=== PATIENT | female | born 1975 | race African-American/Black ===

== ENCOUNTER 2017-04-02 12:46 | Emergency (ER) | payer MEDICAID ==
[~2017-04-02] VITALS: Ht 165.1 cm; Wt 99.7 kg
[~2017-04-02 12:46] MED LIST: AMLO10TA4 PO; AMLO2.5T2 PO; AMLO5TAB2 PO; ATEN25TA PO; CHLO25TA PO; FERR325T18 PO; FERR325T5 PO; HYDR12.53 PO; LISI-170 PO; LISI5TAB7 PO; MEDR10TA PO; MEDR5TAB2 PO; iron
[2017-04-02] MEDS ORDERED: ASPIRIN 81 MG TABLET CHEW PO ONE (14:00)
[2017-04-02] MEDS ORDERED: SODIUM CHLORIDE FLUSH 10ML SYR IVF ONE (14:00)
[2017-04-02] MEDS ORDERED: SODIUM CHLORIDE 0.9% 1,000ML IVBOLUS ONE (14:00)
[2017-04-02] MEDS ORDERED: MORPHINE SULFATE 4 MG/ML, 1ML IVPush PRN (14:00)
[2017-04-02] MEDS ORDERED: ONDANSETRON 2MG/ML, 2ML IVPush ONE (14:00)
[2017-04-02 14:44] LABS: BLOOD UREA NITROGEN 11 mg/dL (7-18)
[2017-04-02 14:49] LABS: ASPARTATE AMINO TRANSFERASE 17 U/L (15-37)
[2017-04-02 14:50] LABS: IS PT STATUS REG ER OR PRE ER? YES
[2017-04-02] MEDS ORDERED: ASPIRIN 81 MG TABLET CHEW ONE (14:57)
[2017-04-02] MEDS ORDERED: METO25TA35 PO (15:47)
[2017-04-02] MEDS ORDERED: CLON-275 PO (15:47)
[2017-04-02] MEDS ORDERED: BUPR150T20 PO (15:47)
[2017-04-02] MEDS ORDERED: MAALOX/HYOSCYAMINE/LIDOCAINE 45 ML BTL ONE (15:54)
[2017-04-02] MEDS ORDERED: KETOROLAC 30 MG/1 ML ONE (15:54)
[2017-04-02] MEDS ORDERED: MAALOX/HYOSCYAMINE/LIDOCAINE 45 ML BTL PO ONE (16:00)
[2017-04-02] MEDS ORDERED: KETOROLAC 30 MG/1 ML IM ONE (16:00)
[2017-04-02 16:34] LABS: HEMATOCRIT 42.8 % (34.6-47.8); HEMOGLOBIN 14.4 g/dL (11.7-16.4); WHITE BLOOD COUNT 7.2 x10^3/uL (3.4-10)
[2017-04-02 16:39] VITALS: BP 156/103
[2017-04-02 16:59] LABS: DIFF TOTAL CELLS COUNTED 100 CELL DIFF
[2017-04-02 17:05] LABS: ANISOCYTOSIS 1+; LARGE PLATELETS 1+; OVALOCYTES 1+; POIKILOCYTOSIS 1+
[2017-04-02 17:06] LABS: GIANT PLATELETS 1+
[2017-04-02 17:07] LABS: VERIFY COUNTS? YES
== END 2017-04-02 16:41 | disposition home or self-care (01) ==
LOC: ED 16:35
DX: R07.89 Other chest pain (principal); R00.2 Palpitations; J45.909 Unspecified asthma, uncomplicated; E07.9 Disorder of thyroid, unspecified; Z90.710 Acquired absence of both cervix and uterus
CPT/HCPCS: 36415; 71010; 80053; 83880; 84484; 85025; 85379; 93005; 96372; 99285; J1885

== ENCOUNTER 2017-11-10 16:32 | Emergency (ER) | payer MEDICAID ==
[~2017-11-10] VITALS: Ht 165.1 cm; Wt 98.6 kg
[~2017-11-10 16:32] MED LIST changes: +BUPR150T20 PO; +CLON-275 PO; +METO25TA35 PO
[2017-11-10 16:33] VITALS: BP 136/90
[2017-11-10 17:28] LABS: ALANINE AMINOTRANSFERASE 21 U/L (12-78); ALBUMIN 3.7 g/dL (3.4-5.0); ANION GAP 6 mmol/L (5-15); CALCIUM 8.8 mg/dL (8.5-10.1); CHLORIDE 109 mmol/L (98-107)
[2017-11-10 17:39] LABS: ALKALINE PHOSPHATASE 65 U/L (45-117); BILIRUBIN,TOTAL 0.2 mg/dL (0.2-1.0); FREE T4 (FREE THYROXINE) 1.19 ng/dL (0.76-1.46); THYROID STIMULATING HORMONE 0.532 mIU/L (0.358-3.740); TOTAL PROTEIN 7.2 g/dL (6.4-8.2)
[2017-11-10 17:46] LABS: BASOPHILS # (AUTO) 0.05 x10^3/uL (0-0.1); BASOPHILS % (AUTO) 1 % (0-1); EOSINOPHILS % (AUTO) 4 % (1-7); LYMPHOCYTES # (AUTO) 2.78 x10^3/uL (1-3.4); LYMPHOCYTES % (AUTO) 36 % (22-44); MD MORPH REVIEW ONLY; MEAN CORPUSCULAR HEMOGLOBIN 29.8 pg (27.0-34.8); MEAN CORPUSCULAR HGB CONC 33.2 g/dL (32.4-35.8); MEAN CORPUSCULAR VOLUME 89.8 fL (80-100); MEAN PLATELET VOLUME 8.9 fL (7.4-10.4); MONOCYTES % (AUTO) 8 % (2-9); NEUTROPHILS # (AUTO) 3.93 x10^3/uL (1.8-6.8); NEUTROPHILS % (AUTO) 51 % (42-75); PLATELET COUNT 232 x10^3/uL (130-400); RED BLOOD COUNT 4.82 x10^6/uL (3.82-5.3); RED CELL DISTRIBUTION WIDTH 14.1 % (9.6-15.2)
[2017-11-10 17:47] LABS: <PLATELET ESTIMATE> ADEQUATE; <RBC MORPHOLOGY> NORMAL; GIANT PLATELETS 1+; LARGE PLATELETS 1+
== END 2017-11-10 18:30 | disposition home or self-care (01) ==
LOC: ED 17:45
DX: G43.009 Migraine without aura, not intractable, without status migrainosus (principal); N95.1 Menopausal and female climacteric states; Z79.899 Other long term (current) drug therapy; F17.200 Nicotine dependence, unspecified, uncomplicated; I10 Essential (primary) hypertension; M17.9 Osteoarthritis of knee, unspecified
CPT/HCPCS: 80053; 82962; 84439; 84443; 84481; 85025; 99284

== ENCOUNTER 2018-08-30 16:27 | Emergency (ER) | payer MEDICAID ==
[~2018-08-30] VITALS: Ht 165.1 cm; Wt 101.0 kg
[~2018-08-30 16:27] MED LIST changes: +AMLO-150 PO; -AMLO5TAB2 PO; +HYDR12.517 PO; -HYDR12.53 PO
[2018-08-30 16:29] VITALS: BP 157/108
[2018-08-30] MEDS ORDERED: IBUPROFEN 200 MG TABLET ONE (17:00)
[2018-08-30] MEDS ORDERED: IBUPROFEN 800 MG TABLET PO ONE (17:00)
--- NOTE | 2018-08-30 18:18 | NUR ---
TASK RN: Pt declined crutches. Pt ambulates with steady gait and balance from [facility] to d/c desk and left with all personal belongings, d/c paperwork, and prescription.
== END 2018-08-30 18:20 | disposition home or self-care (01) ==
LOC: ED 16:36
DX: G89.11 Acute pain due to trauma (principal); M25.562 Pain in left knee; W10.9XXA Fall (on) (from) unspecified stairs and steps, initial encounter; Y93.89 Activity, other specified; Y92.009 Unspecified place in unspecified non-institutional (private) residence as the place of occurrence of the external cause; Y99.8 Other external cause status
CPT/HCPCS: 29505; 99283

== ENCOUNTER 2019-04-16 09:15 | Emergency (ER) | payer MEDICAID ==
[~2019-04-16] VITALS: Ht 165.1 cm; Wt 102.0 kg
[2019-04-16 09:18] VITALS: BP 157/108
--- NOTE | 2019-04-16 09:27 | NUR ---
first contact with pt. pt states "I was at work yesterday, started out fine, but my back started hurting. Shooting pain every time I walked on my right leg." Shooting pain from low back down right leg when weight baring. pt denies any other sx. pt's aox4. resps even and unlabored.
--- NOTE | 2019-04-16 09:42 | NUR ---
pa at bedside to evaluate at this time.
[2019-04-16] MEDS ORDERED: OXYcodone/APAP 5/325MG TABLET ONE (09:54)
[2019-04-16] MEDS ORDERED: KETOROLAC 30 MG/1 ML ONE (09:54)
[2019-04-16] MEDS ORDERED: DIAZEPAM 5 MG TABLET ONE (09:54)
--- NOTE | 2019-04-16 09:59 | NUR ---
pt medicated per emar. pt tolerated well.
[2019-04-16] MEDS ORDERED: OXYcodone/APAP 5/325MG TABLET PO ONE (10:00)
[2019-04-16] MEDS ORDERED: KETOROLAC 30 MG/1 ML IM ONE (10:00)
[2019-04-16] MEDS ORDERED: DIAZEPAM 5 MG TABLET PO ONE (10:00)
--- NOTE | 2019-04-16 10:15 | NUR ---
pt's pain level is 0/10 at this time.
--- NOTE | 2019-04-16 10:55 | NUR ---
Patient given discharge instructions and they have confirmed that they understand the instructions. Patient ambulatory with steady gait.
== END 2019-04-16 10:56 ==
LOC: ED 10:13
DX: S39.012A Strain of muscle, fascia and tendon of lower back, initial encounter (principal); M54.41 Lumbago with sciatica, right side; I10 Essential (primary) hypertension; G43.909 Migraine, unspecified, not intractable, without status migrainosus; X58.XXXA Exposure to other specified factors, initial encounter; Y93.89 Activity, other specified; Y92.89 Other specified places as the place of occurrence of the external cause; Y99.8 Other external cause status
CPT/HCPCS: 96372; 99283; J1885